=== PATIENT | male | born 1995 | race Caucasian/White ===

== ENCOUNTER 2023-06-09 18:43 | Emergency (ER) | payer MEDICAID, OTHER ==
[~2023-06-09] VITALS: Ht 170.2 cm; Wt 76.9 kg
[2023-06-09 20:09] LABS: BASO # 0.1 10^3/uL (0.0-0.2); BASO % 0.5 % (0.0-1.0); EOS # 0.1 10^3/uL (0.0-0.5); EOS % 0.9 % (0.0-3.0); HEMATOCRIT 47.1 % (42.0-52.0); HEMOGLOBIN 15.9 g/dl (13.5-17.5); LYMPH # 2.5 10^3/uL (1.5-5.0); LYMPH % 20.2 % (24.0-44.0); MEAN CORPUSCULAR HEMOGLOBIN 30.9 pg (27.0-33.0); MEAN CORPUSCULAR HGB CONC 33.8 g/dl (32.0-36.5); MEAN CORPUSCULAR VOLUME 91.6 fl (80.0-96.0); MONO % 7.6 % (2.0-8.0); NEUTROPHILS # 8.8 10^3/uL (1.5-8.5); NEUTROPHILS % 70.5 % (36.0-66.0); PLATELET COUNT, AUTOMATED 209 10^3/uL (150-450); RED BLOOD COUNT 5.14 10^6/uL (4.30-6.10); WHITE BLOOD COUNT 12.5 10^3/uL (4.0-10.0)
[2023-06-09 20:26] LABS: INR 1.05; PARTIAL THROMBOPLASTIN TIME 29.5 SECONDS (24.8-34.2); PROTHROMBIN TIME 13.4 SECONDS (12.5-14.5)
[2023-06-09 20:45] LABS: LIPASE 42 U/L (12-53)
[2023-06-09 20:46] LABS: CK-MB VALUE MASS 2.1 NG/ML (<3.6)
[2023-06-09 20:47] LABS: ALBUMIN 4.8 G/DL (3.2-5.2); ALKALINE PHOSPHATASE 69 U/L (46-116); ALT/SGPT 23 U/L (7.0-40); AST/SGOT 22 U/L (<34); BILIRUBIN,DIRECT 0.3 MG/DL (<0.4); BILIRUBIN,TOTAL 1.1 MG/DL (0.3-1.2); BLOOD UREA NITROGEN 15 MG/DL (9-23); CALCIUM LEVEL 9.6 MG/DL (8.5-10.1); CARBON DIOXIDE LEVEL 29 MMOL/L (20-31); CHLORIDE LEVEL 105 MMOL/L (98-107); CREATININE FOR GFR 0.92 MG/DL (0.70-1.30); GLOMERULAR FILTRATION RATE > 60.0 (>60); GLUCOSE, FASTING 80 MG/DL (60-100); POTASSIUM SERUM 3.8 MMOL/L (3.5-5.1); SODIUM LEVEL 139 MMOL/L (136-145); TOTAL PROTEIN 7.8 G/DL (5.7-8.2)
[2023-06-09 20:48] LABS: CPK CREATINE PHOSPHOKINASE 272 U/L (46-171); MB/CK RELATIVE INDEX 0.77 (< OR =4)
[2023-06-09] MEDS ORDERED: PANTOPRAZOLE 40MG TAB (PROTONIX) PO ONE (22:05)
[2023-06-09] MEDS ORDERED: ASPIRIN 325 MG TAB PO ONE (22:05)
[2023-06-09] MEDS ORDERED: ISOVUE-370 76% 100ML VIAL As Ordered ONE (22:12)
[2023-06-09 23:07] LABS: CK-MB VALUE MASS 1.7 NG/ML (<3.6)
[2023-06-09 23:09] LABS: CPK CREATINE PHOSPHOKINASE 241 U/L (46-171)
[2023-06-09] MEDS ORDERED: PANT40TA29 PO (23:44)
[2023-06-09 23:45] VITALS: O2SAT 99
[2023-06-09 23:51] VITALS: BP 129/77; TEMP 98.2
== END 2023-06-10 | disposition home or self-care (01) ==
LOC: M ED 18:43
DX: R07.9 Chest pain, unspecified (principal); F12.10 Cannabis abuse, uncomplicated; Z79.1 Long term (current) use of non-steroidal anti-inflammatories (NSAID)
CPT/HCPCS: 36415; 71046; 71275; 80048; 80076; 82550; 82553; 83690; 84484; 85025; 85610; 85730; 93005; 93041; 94760; 99285; Q9967